=== PATIENT | female | born 1955 | race African-American/Black ===

== ENCOUNTER 2022-05-04 13:14 | Inpatient (IN) ==
[2022-05-04 13:39] LABS: Basophils % 0.4 % (0.0-0.8); Eosinophils # 0.1 10*3/uL (0.0-0.87); Eosinophils % 1.5 % (0.00-10.9); Hematocrit 23.9 VOL% (35.7-47.0); Immature Granulocytes % 0.8 %; Immature Granulocytes Absolute 0.06 #; Lymphocytes # 1.9 10*3/uL (1.4-4.0); Lymphocytes % 24.1 % (21.3-54.2); Mean Corpuscular HGB Conc 29.3 GM/DL (32-36); Mean Corpuscular Volume 93.4 FL (87-102); Mean Platelet Volume 9.2 FL (9.6-12.0); Monocytes # 0.6 10*3/uL (0.11-0.8); Monocytes % 7.1 % (1.7-12.7); NRBC # 0.03 10*3/uL; Neutrophils % 66.1 % (38.7-73.9); Platelet Count 259 T/CUMM (130-400); Red Blood Count 2.56 MC/CUMM (3.8-5.5); Red Cell Distribution Width 16.6 % (9.3-17.3)
[2022-05-04 14:02] LABS: Albumin 3.3 G/DL (3.4-5.0); Bilirubin,Total 0.5 MG/DL (0.20-1.00); Osmolality,Calculated 281.7 MOS/KG (273-304); Total Protein 6.8 G/DL (6.4-8.2)
[2022-05-04] MEDS ORDERED: SODIUM CHLORIDE 0.9% 1,000 ML IV PRN (14:45)
[2022-05-04] MEDS ORDERED: PANTOPRAZOLE INJ 80 MG in SODIUM CHLORIDE 0.9% 100 ML IV ONE (14:45)
[2022-05-04] MEDS ORDERED: PANTOPRAZOLE 40 MG VIAL IV ONE (15:21)
[2022-05-04 15:45] LABS: INR 3.9
[2022-05-04 15:50] LABS: PT Patient Result 38.8 SECS (10.1-12.1)
[2022-05-04] MEDS ORDERED: PANTOPRAZOLE INJ 200 MG in SODIUM CHLORIDE 0.9% 250 ML IV SCH (16:00)
[2022-05-04] MEDS ORDERED: FUROSEMIDE 40 MG TABLET PO PRN (18:00)
[2022-05-04] MEDS ORDERED: INFLUENZA VIRUS VACCINE 0.5 ML SYRINGE IM ONE (20:05)
[2022-05-04] MEDS: AMITRIPTYLINE 50 MG TABLET PO SCH (20:59)
[2022-05-04] MEDS: BIMATOPROST 0.01% OPH SOLN 2.5 ML BOTTLE BOTH EYES SCH (20:59)
[2022-05-04] MEDS: tiZANidine 4 MG TABLET PO SCH (21:01)
[2022-05-04] MEDS: METOPROLOL TARTRATE 50 MG TABLET PO SCH (21:01)
[2022-05-04] MEDS: PANTOPRAZOLE INJ 200 MG in SODIUM CHLORIDE 0.9% 250 ML IV SCH (21:03)
[2022-05-04 22:52] LABS: Hematocrit 29.1 VOL% (35.7-47.0); Hemoglobin 9.1 GM/DL (12.0-16.0)
[2022-05-05 03:29] LABS: Bacteria,Urine Occasional /HPF (Few); Bilirubin,Urine Negative (Negative); Blood, Urine Trace mg/dL (Negative); Glucose,Urine (UA) Negative (Negative); Ketones,Urine Negative (Negative); Nitrite,Urine Negative (Negative); Protein,Urine Negative (Negative); RBC,Urine 2 /HPF (0-4); Squamous Epithelial Cell,Urine Many /HPF (0-10); Urine Appearance Slightly Cloudy (Clear); Urine Color Yellow (Yellow); Urine Urobilinogen 0.2 eU/dL (<2.0); Urine pH 5.5 (4.5-8.0)
[2022-05-05 05:40] LABS: Hematocrit 30.5 VOL% (35.7-47.0); Hemoglobin 9.6 GM/DL (12.0-16.0)
[2022-05-05 05:50] LABS: INR 3.2; PT Patient Result 32.8 SECS (10.1-12.1)
[2022-05-05 06:09] LABS: Albumin 3.4 G/DL (3.4-5.0); Bilirubin,Total 0.7 MG/DL (0.20-1.00); Calcium 8.7 MG/DL (8.5-10.1); Osmolality,Calculated 282.1 MOS/KG (273-304); Potassium 3.8 MMOL/L (3.5-5.1); Total Protein 6.6 G/DL (6.4-8.2)
[2022-05-05] MEDS: LOSARTAN 50 MG TABLET PO SCH (09:19)
[2022-05-05] MEDS: ROSUVASTATIN 10 MG TABLET PO SCH (09:19)
[2022-05-05] MEDS: METOPROLOL TARTRATE 50 MG TABLET PO SCH ×2 (09:19→21:25)
[2022-05-05] MEDS: cycloSPORINE OPH EMUL 1 VIAL BOTH EYES SCH (09:22)
[2022-05-05 10:00] LABS: Hematocrit 29.4 VOL% (35.7-47.0); Hemoglobin 9.2 GM/DL (12.0-16.0)
[2022-05-05 11:01] LABS: % Iron Saturation 13.9 % (18-50); Ferritin 43.2 ng/mL (8-252)
[2022-05-05 13:55] LABS: Hematocrit 29.9 VOL% (35.7-47.0); Hemoglobin 9.3 GM/DL (12.0-16.0)
[2022-05-05] MEDS: PANTOPRAZOLE INJ 200 MG in SODIUM CHLORIDE 0.9% 250 ML IV SCH (17:11)
[2022-05-05] MEDS: AMITRIPTYLINE 50 MG TABLET PO SCH (21:24)
[2022-05-05] MEDS: tiZANidine 4 MG TABLET PO SCH (21:25)
[2022-05-05] MEDS: BIMATOPROST 0.01% OPH SOLN 2.5 ML BOTTLE BOTH EYES SCH (21:25)
[2022-05-05 22:17] LABS: Hematocrit 30.3 VOL% (35.7-47.0); Hemoglobin 9.2 GM/DL (12.0-16.0)
[2022-05-06 06:24] LABS: Basophils % 0.3 % (0.0-0.8); Eosinophils # 0.2 10*3/uL (0.0-0.87); Eosinophils % 2.8 % (0.00-10.9); Hematocrit 29.6 VOL% (35.7-47.0); Hemoglobin 9.2 GM/DL (12.0-16.0); Immature Granulocytes % 0.4 %; Immature Granulocytes Absolute 0.03 #; Lymphocytes # 2.2 10*3/uL (1.4-4.0); Lymphocytes % 33.2 % (21.3-54.2); Mean Corpuscular HGB Conc 31.1 GM/DL (32-36); Mean Corpuscular Volume 88.4 FL (87-102); Mean Platelet Volume 10.4 FL (9.6-12.0); Monocytes # 0.6 10*3/uL (0.11-0.8); Monocytes % 8.6 % (1.7-12.7); Neutrophils % 54.7 % (38.7-73.9); Platelet Count 227 T/CUMM (130-400); Red Blood Count 3.35 MC/CUMM (3.8-5.5); Red Cell Distribution Width 17.1 % (9.3-17.3); White Blood Count 6.7 T/CUMM (4-12)
[2022-05-06 06:37] LABS: INR 3.1; PT Patient Result 31.6 SECS (10.1-12.1)
[2022-05-06 06:47] LABS: Albumin 3.3 G/DL (3.4-5.0); Bilirubin,Total 0.8 MG/DL (0.20-1.00); Calcium 9.1 MG/DL (8.5-10.1); Osmolality,Calculated 278.4 MOS/KG (273-304); Potassium 3.4 MMOL/L (3.5-5.1); Total Protein 6.4 G/DL (6.4-8.2)
[2022-05-06] MEDS ORDERED: LACTATED RINGERS 1,000 ML IV SCH (08:00)
[2022-05-06] MEDS ORDERED: ETOMIDATE 20 MG/10 ML VIAL IV ONE (09:39)
[2022-05-06] MEDS ORDERED: propofoL 200 MG/20 ML VIAL IV ONE (09:39)
[2022-05-06] MEDS ORDERED: LIDOCAINE 2% 5 ML VIAL ONE (09:39)
[2022-05-06] MEDS ORDERED: POTASSIUM CHLORIDE 20 MEQ TABLET PO ONE (11:02)
[2022-05-06] MEDS: LOSARTAN 50 MG TABLET PO SCH (11:04)
[2022-05-06] MEDS: ROSUVASTATIN 10 MG TABLET PO SCH (11:04)
[2022-05-06] MEDS: cycloSPORINE OPH EMUL 1 VIAL BOTH EYES SCH (11:05)
[2022-05-06] MEDS: METOPROLOL TARTRATE 50 MG TABLET PO SCH ×2 (11:05→20:26)
[2022-05-06] MEDS: AMITRIPTYLINE 50 MG TABLET PO SCH (20:26)
[2022-05-06] MEDS: PANTOPRAZOLE 40 MG TABLET PO SCH (20:27)
[2022-05-06] MEDS: BIMATOPROST 0.01% OPH SOLN 2.5 ML BOTTLE BOTH EYES SCH (20:27)
[2022-05-06] MEDS: tiZANidine 4 MG TABLET PO SCH (20:27)
[2022-05-06] MEDS: oxyCODONE/ACETAMINOPHEN 5-325 MG TABLET PO PRN (20:28)
[2022-05-07 05:46] LABS: Basophils % 0.2 % (0.0-0.8); Eosinophils # 0.2 10*3/uL (0.0-0.87); Eosinophils % 3.7 % (0.00-10.9); Hematocrit 28.9 VOL% (35.7-47.0); Hemoglobin 9.1 GM/DL (12.0-16.0); Immature Granulocytes % 0.2 %; Immature Granulocytes Absolute 0.01 #; Lymphocytes # 2.3 10*3/uL (1.4-4.0); Lymphocytes % 40.8 % (21.3-54.2); Mean Corpuscular HGB Conc 31.5 GM/DL (32-36); Mean Platelet Volume 10.4 FL (9.6-12.0); Monocytes # 0.5 10*3/uL (0.11-0.8); Monocytes % 9.2 % (1.7-12.7); Neutrophils % 45.9 % (38.7-73.9); Platelet Count 228 T/CUMM (130-400); Red Blood Count 3.21 MC/CUMM (3.8-5.5); Red Cell Distribution Width 16.7 % (9.3-17.3); White Blood Count 5.7 T/CUMM (4-12)
[2022-05-07 05:53] LABS: INR 2.6; PT Patient Result 26.6 SECS (10.1-12.1)
[2022-05-07 06:00] LABS: Calcium 9.1 MG/DL (8.5-10.1); Osmolality,Calculated 279.3 MOS/KG (273-304); Potassium 4.1 MMOL/L (3.5-5.1)
[2022-05-07] MEDS: oxyCODONE/ACETAMINOPHEN 5-325 MG TABLET PO PRN ×2 (08:37→19:42)
[2022-05-07] MEDS: LOSARTAN 50 MG TABLET PO SCH (09:55)
[2022-05-07] MEDS: METOPROLOL TARTRATE 50 MG TABLET PO SCH ×2 (09:56→21:00)
[2022-05-07] MEDS: PANTOPRAZOLE 40 MG TABLET PO SCH ×2 (09:57→21:00)
[2022-05-07] MEDS: ROSUVASTATIN 10 MG TABLET PO SCH (09:58)
[2022-05-07] MEDS: cycloSPORINE OPH EMUL 1 VIAL BOTH EYES SCH (10:04)
[2022-05-07] MEDS: tiZANidine 4 MG TABLET PO SCH (21:00)
[2022-05-07] MEDS: AMITRIPTYLINE 50 MG TABLET PO SCH (21:00)
[2022-05-07] MEDS: BIMATOPROST 0.01% OPH SOLN 2.5 ML BOTTLE BOTH EYES SCH (21:01)
[2022-05-07] MEDS: ZALEPLON 5 MG CAPSULE PO PRN (23:03)
[2022-05-08 05:08] LABS: Basophils % 0.2 % (0.0-0.8); Eosinophils # 0.2 10*3/uL (0.0-0.87); Eosinophils % 2.8 % (0.00-10.9); Hematocrit 28.8 VOL% (35.7-47.0); Hemoglobin 8.9 GM/DL (12.0-16.0); Immature Granulocytes % 0.2 %; Immature Granulocytes Absolute 0.01 #; Lymphocytes # 2.2 10*3/uL (1.4-4.0); Mean Corpuscular HGB Conc 30.9 GM/DL (32-36); Mean Corpuscular Volume 89.4 FL (87-102); Mean Platelet Volume 10.2 FL (9.6-12.0); Monocytes # 0.6 10*3/uL (0.11-0.8); Monocytes % 9.1 % (1.7-12.7); Neutrophils % 51.7 % (38.7-73.9); Platelet Count 233 T/CUMM (130-400); Red Blood Count 3.22 MC/CUMM (3.8-5.5); Red Cell Distribution Width 16.3 % (9.3-17.3)
[2022-05-08 05:34] LABS: Calcium 8.7 MG/DL (8.5-10.1); Osmolality,Calculated 280.1 MOS/KG (273-304); Potassium 3.8 MMOL/L (3.5-5.1)
[2022-05-08 05:35] LABS: INR 1.7; PT Patient Result 17.9 SECS (10.1-12.1)
[2022-05-08] MEDS: LACTATED RINGERS 1,000 ML IV SCH ×2 (07:45→10:24)
[2022-05-08] MEDS: LOSARTAN 50 MG TABLET PO SCH (09:04)
[2022-05-08] MEDS: cycloSPORINE OPH EMUL 1 VIAL BOTH EYES SCH (09:04)
[2022-05-08] MEDS: PANTOPRAZOLE 40 MG TABLET PO SCH ×2 (09:04→21:11)
[2022-05-08] MEDS: METOPROLOL TARTRATE 50 MG TABLET PO SCH ×2 (09:04→21:11)
[2022-05-08] MEDS: ROSUVASTATIN 10 MG TABLET PO SCH (09:04)
[2022-05-08] MEDS: HEPARIN DRIP 25,000 UNITS/500 ML PREMIX IV SCH (10:59)
[2022-05-08 17:12] LABS: INR 1.4; PT Patient Result 15.1 SECS (10.1-12.1); Partial Thromboplastin Time 83.1 SECS (23.7-32.9)
[2022-05-08] MEDS: PROMETHAZINE 25 MG/1 ML VIAL IM PRN (17:25)
[2022-05-08] MEDS: tiZANidine 4 MG TABLET PO SCH (21:10)
[2022-05-08] MEDS: AMITRIPTYLINE 50 MG TABLET PO SCH (21:12)
[2022-05-08] MEDS: BIMATOPROST 0.01% OPH SOLN 2.5 ML BOTTLE BOTH EYES SCH (21:12)
[2022-05-08] MEDS: oxyCODONE/ACETAMINOPHEN 5-325 MG TABLET PO PRN (23:06)
[2022-05-08 23:58] LABS: INR 1.3
[2022-05-09 00:01] LABS: Partial Thromboplastin Time 144.1 SECS (23.7-32.9)
[2022-05-09 07:30] LABS: Basophils % 0.3 % (0.0-0.8); Eosinophils # 0.2 10*3/uL (0.0-0.87); Eosinophils % 3.6 % (0.00-10.9); Hematocrit 28.4 VOL% (35.7-47.0); Hemoglobin 8.8 GM/DL (12.0-16.0); Immature Granulocytes % 0.3 %; Immature Granulocytes Absolute 0.02 #; Lymphocytes # 2.6 10*3/uL (1.4-4.0); Lymphocytes % 40.3 % (21.3-54.2); Mean Corpuscular Volume 89.6 FL (87-102); Mean Platelet Volume 10.5 FL (9.6-12.0); Monocytes # 0.5 10*3/uL (0.11-0.8); Monocytes % 7.6 % (1.7-12.7); Neutrophils % 47.9 % (38.7-73.9); Platelet Count 238 T/CUMM (130-400); Red Blood Count 3.17 MC/CUMM (3.8-5.5); Red Cell Distribution Width 16.2 % (9.3-17.3); White Blood Count 6.4 T/CUMM (4-12)
[2022-05-09 07:45] LABS: Calcium 8.8 MG/DL (8.5-10.1); Osmolality,Calculated 281.1 MOS/KG (273-304); Potassium 3.6 MMOL/L (3.5-5.1)
[2022-05-09] MEDS: METOPROLOL TARTRATE 50 MG TABLET PO SCH ×2 (09:34→22:14)
[2022-05-09] MEDS: LOSARTAN 50 MG TABLET PO SCH (09:34)
[2022-05-09] MEDS: PANTOPRAZOLE 40 MG TABLET PO SCH ×2 (09:34→22:14)
[2022-05-09] MEDS: ROSUVASTATIN 10 MG TABLET PO SCH (09:34)
[2022-05-09] MEDS: cycloSPORINE OPH EMUL 1 VIAL BOTH EYES SCH (09:37)
[2022-05-09] MEDS: oxyCODONE/ACETAMINOPHEN 5-325 MG TABLET PO PRN ×2 (09:41→22:14)
[2022-05-09] MEDS: HEPARIN DRIP 25,000 UNITS/500 ML PREMIX IV SCH (09:43)
[2022-05-09] MEDS: LACTATED RINGERS 1,000 ML IV SCH (10:23)
[2022-05-09] MEDS ORDERED: BISACODYL 5 MG TABLET PO ONE (12:00)
[2022-05-09] MEDS ORDERED: POLYETHYLENE GLYCOL POWDER 255 GM BOTTLE PO ONE (18:00)
[2022-05-09] MEDS: PROMETHAZINE 25 MG/1 ML VIAL IM PRN (20:49)
[2022-05-09] MEDS ORDERED: MAGNESIUM HYDROXIDE SUSP 30 ML UDCUP PO ONE (21:00)
[2022-05-09] MEDS: AMITRIPTYLINE 50 MG TABLET PO SCH (22:14)
[2022-05-09] MEDS: tiZANidine 4 MG TABLET PO SCH (22:14)
[2022-05-09] MEDS: BIMATOPROST 0.01% OPH SOLN 2.5 ML BOTTLE BOTH EYES SCH (22:15)
[2022-05-10 01:36] LABS: Basophils % 0.3 % (0.0-0.8); Eosinophils # 0.1 10*3/uL (0.0-0.87); Hematocrit 28.1 VOL% (35.7-47.0); Hemoglobin 8.7 GM/DL (12.0-16.0); Immature Granulocytes % 0.4 %; Immature Granulocytes Absolute 0.03 #; Lymphocytes # 1.7 10*3/uL (1.4-4.0); Lymphocytes % 24.9 % (21.3-54.2); Mean Corpuscular Volume 89.2 FL (87-102); Mean Platelet Volume 10.6 FL (9.6-12.0); Monocytes # 0.4 10*3/uL (0.11-0.8); Monocytes % 6.4 % (1.7-12.7); Platelet Count 239 T/CUMM (130-400); Red Blood Count 3.15 MC/CUMM (3.8-5.5); Red Cell Distribution Width 16.2 % (9.3-17.3); White Blood Count 6.9 T/CUMM (4-12)
[2022-05-10 01:45] LABS: INR 1.2
[2022-05-10 02:02] LABS: Calcium 8.9 MG/DL (8.5-10.1); Osmolality,Calculated 278.4 MOS/KG (273-304); Potassium 3.9 MMOL/L (3.5-5.1)
[2022-05-10] MEDS: LACTATED RINGERS 1,000 ML IV SCH (08:33)
[2022-05-10] MEDS ORDERED: ETOMIDATE 20 MG/10 ML VIAL IV ONE (09:52)
[2022-05-10] MEDS ORDERED: propofoL 200 MG/20 ML VIAL IV ONE (09:52)
[2022-05-10] MEDS ORDERED: LIDOCAINE 2% 5 ML VIAL ONE (09:52)
[2022-05-10] MEDS ORDERED: LABETALOL 20 MG/4 ML SYRINGE IV ONE (09:52)
[2022-05-10] MEDS: METOPROLOL TARTRATE 50 MG TABLET PO SCH ×2 (11:44→20:50)
[2022-05-10] MEDS: LOSARTAN 50 MG TABLET PO SCH (12:46)
[2022-05-10] MEDS: ROSUVASTATIN 10 MG TABLET PO SCH (12:49)
[2022-05-10] MEDS: PANTOPRAZOLE 40 MG TABLET PO SCH ×2 (12:49→20:50)
[2022-05-10] MEDS: cycloSPORINE OPH EMUL 1 VIAL BOTH EYES SCH (12:50)
[2022-05-10] MEDS ORDERED: HEPARIN 5,000 UNIT/1 ML VIAL IV ONE (14:00)
[2022-05-10] MEDS: oxyCODONE/ACETAMINOPHEN 5-325 MG TABLET PO PRN ×2 (15:18→18:21)
[2022-05-10] MEDS: HEPARIN DRIP 25,000 UNITS/500 ML PREMIX IV SCH (18:36)
[2022-05-10] MEDS: AMITRIPTYLINE 50 MG TABLET PO SCH (20:50)
[2022-05-10] MEDS: tiZANidine 4 MG TABLET PO SCH (20:50)
[2022-05-10] MEDS: BIMATOPROST 0.01% OPH SOLN 2.5 ML BOTTLE BOTH EYES SCH (20:51)
[2022-05-11 07:47] LABS: Basophils % 0.4 % (0.0-0.8); Eosinophils # 0.2 10*3/uL (0.0-0.87); Eosinophils % 3.4 % (0.00-10.9); Hematocrit 30.4 VOL% (35.7-47.0); Hemoglobin 9.3 GM/DL (12.0-16.0); Immature Granulocytes % 0.4 %; Immature Granulocytes Absolute 0.02 #; Lymphocytes % 36.6 % (21.3-54.2); Mean Corpuscular HGB Conc 30.6 GM/DL (32-36); Mean Corpuscular Volume 90.5 FL (87-102); Mean Platelet Volume 10.1 FL (9.6-12.0); Monocytes # 0.5 10*3/uL (0.11-0.8); Monocytes % 9.3 % (1.7-12.7); Neutrophils % 49.9 % (38.7-73.9); Platelet Count 233 T/CUMM (130-400); Red Blood Count 3.36 MC/CUMM (3.8-5.5); Red Cell Distribution Width 16.2 % (9.3-17.3); White Blood Count 5.4 T/CUMM (4-12)
[2022-05-11 08:00] LABS: INR 1.1; PT Patient Result 11.6 SECS (10.1-12.1)
[2022-05-11 08:08] LABS: Calcium 8.8 MG/DL (8.5-10.1); Osmolality,Calculated 276.4 MOS/KG (273-304); Potassium 3.4 MMOL/L (3.5-5.1)
[2022-05-11] MEDS: ROSUVASTATIN 10 MG TABLET PO SCH (09:05)
[2022-05-11] MEDS: PANTOPRAZOLE 40 MG TABLET PO SCH ×2 (09:06→20:25)
[2022-05-11] MEDS: METOPROLOL TARTRATE 50 MG TABLET PO SCH ×2 (09:06→20:25)
[2022-05-11] MEDS: cycloSPORINE OPH EMUL 1 VIAL BOTH EYES SCH (09:13)
[2022-05-11] MEDS ORDERED: POTASSIUM CHLORIDE 20 MEQ TABLET PO ONE (10:00)
[2022-05-11] MEDS: LOSARTAN 50 MG TABLET PO SCH (10:25)
[2022-05-11] MEDS: oxyCODONE/ACETAMINOPHEN 5-325 MG TABLET PO PRN ×2 (12:49→20:53)
[2022-05-11] MEDS ORDERED: WARFARIN 10 MG TABLET PO ONE (13:00)
[2022-05-11] MEDS: AMITRIPTYLINE 50 MG TABLET PO SCH (20:25)
[2022-05-11] MEDS: HEPARIN DRIP 25,000 UNITS/500 ML PREMIX IV SCH (20:25)
[2022-05-11] MEDS: tiZANidine 4 MG TABLET PO SCH (20:25)
[2022-05-11] MEDS: BIMATOPROST 0.01% OPH SOLN 2.5 ML BOTTLE BOTH EYES SCH (20:25)
[2022-05-12] MEDS: ZALEPLON 5 MG CAPSULE PO PRN ×2 (00:51→21:08)
[2022-05-12 05:21] LABS: Basophils % 0.3 % (0.0-0.8); Eosinophils # 0.1 10*3/uL (0.0-0.87); Eosinophils % 2.4 % (0.00-10.9); Hematocrit 27.7 VOL% (35.7-47.0); Hemoglobin 8.4 GM/DL (12.0-16.0); Immature Granulocytes % 0.2 %; Immature Granulocytes Absolute 0.01 #; Lymphocytes # 2.7 10*3/uL (1.4-4.0); Lymphocytes % 46.2 % (21.3-54.2); Mean Corpuscular HGB Conc 30.3 GM/DL (32-36); Mean Corpuscular Volume 90.8 FL (87-102); Mean Platelet Volume 10.1 FL (9.6-12.0); Monocytes # 0.6 10*3/uL (0.11-0.8); Monocytes % 10.2 % (1.7-12.7); Neutrophils % 40.7 % (38.7-73.9); Platelet Count 220 T/CUMM (130-400); Red Blood Count 3.05 MC/CUMM (3.8-5.5); Red Cell Distribution Width 15.9 % (9.3-17.3); White Blood Count 5.8 T/CUMM (4-12)
[2022-05-12 05:30] LABS: INR 1.1; PT Patient Result 12.3 SECS (10.1-12.1)
[2022-05-12 05:47] LABS: Calcium 9.1 MG/DL (8.5-10.1); Osmolality,Calculated 281.3 MOS/KG (273-304); Potassium 3.6 MMOL/L (3.5-5.1)
[2022-05-12] MEDS: METOPROLOL TARTRATE 50 MG TABLET PO SCH ×2 (08:35→21:23)
[2022-05-12] MEDS: ROSUVASTATIN 10 MG TABLET PO SCH (08:35)
[2022-05-12] MEDS: PANTOPRAZOLE 40 MG TABLET PO SCH ×2 (08:35→21:08)
[2022-05-12] MEDS: WARFARIN 5 MG TABLET PO SCH (08:35)
[2022-05-12] MEDS: LOSARTAN 50 MG TABLET PO SCH (08:35)
[2022-05-12] MEDS: cycloSPORINE OPH EMUL 1 VIAL BOTH EYES SCH (08:38)
[2022-05-12] MEDS ORDERED: MECLIZINE 25 MG TABLET PO PRN (11:19)
[2022-05-12] MEDS ORDERED: WARFARIN 5 MG TABLET PO ONE (13:00)
[2022-05-12] MEDS: HEPARIN DRIP 25,000 UNITS/500 ML PREMIX IV SCH ×2 (13:30→21:24)
[2022-05-12] MEDS: AMITRIPTYLINE 50 MG TABLET PO SCH (21:08)
[2022-05-12] MEDS: tiZANidine 4 MG TABLET PO SCH (21:08)
[2022-05-12] MEDS: BIMATOPROST 0.01% OPH SOLN 2.5 ML BOTTLE BOTH EYES SCH (21:08)
[2022-05-13 05:12] LABS: Basophils % 0.2 % (0.0-0.8); Eosinophils # 0.2 10*3/uL (0.0-0.87); Eosinophils % 3.2 % (0.00-10.9); Hematocrit 28.8 VOL% (35.7-47.0); Hemoglobin 8.9 GM/DL (12.0-16.0); Immature Granulocytes % 0.2 %; Immature Granulocytes Absolute 0.01 #; Lymphocytes # 2.1 10*3/uL (1.4-4.0); Lymphocytes % 39.8 % (21.3-54.2); Mean Corpuscular HGB Conc 30.9 GM/DL (32-36); Mean Corpuscular Volume 88.3 FL (87-102); Monocytes # 0.5 10*3/uL (0.11-0.8); Monocytes % 9.1 % (1.7-12.7); Neutrophils % 47.5 % (38.7-73.9); Platelet Count 244 T/CUMM (130-400); Red Blood Count 3.26 MC/CUMM (3.8-5.5); Red Cell Distribution Width 15.9 % (9.3-17.3); White Blood Count 5.4 T/CUMM (4-12)
[2022-05-13 05:23] LABS: INR 1.7; PT Patient Result 17.7 SECS (10.1-12.1)
[2022-05-13 05:32] LABS: Calcium 9.1 MG/DL (8.5-10.1); Osmolality,Calculated 280.1 MOS/KG (273-304); Potassium 3.9 MMOL/L (3.5-5.1)
[2022-05-13] MEDS ORDERED: WARFARIN 2.5 MG TABLET PO SCH (09:00)
[2022-05-13] MEDS: ROSUVASTATIN 10 MG TABLET PO SCH (09:48)
[2022-05-13] MEDS: LOSARTAN 50 MG TABLET PO SCH (09:48)
[2022-05-13] MEDS: PANTOPRAZOLE 40 MG TABLET PO SCH ×2 (09:50→20:42)
[2022-05-13] MEDS: METOPROLOL TARTRATE 50 MG TABLET PO SCH ×2 (09:50→20:42)
[2022-05-13] MEDS: cycloSPORINE OPH EMUL 1 VIAL BOTH EYES SCH (09:54)
[2022-05-13] MEDS: CHOLECALCIFEROL 5,000 UNIT TABLET PO SCH (09:56)
[2022-05-13] MEDS: HEPARIN DRIP 25,000 UNITS/500 ML PREMIX IV SCH ×2 (10:30→23:32)
[2022-05-13] MEDS ORDERED: hydrALAZINE 20 MG/1 ML VIAL IV PRN (16:48)
[2022-05-13] MEDS: AMITRIPTYLINE 50 MG TABLET PO SCH (20:41)
[2022-05-13] MEDS: tiZANidine 4 MG TABLET PO SCH (20:42)
[2022-05-13] MEDS: BIMATOPROST 0.01% OPH SOLN 2.5 ML BOTTLE BOTH EYES SCH (20:42)
[2022-05-14 05:13] LABS: Basophils % 0.5 % (0.0-0.8); Eosinophils # 0.2 10*3/uL (0.0-0.87); Eosinophils % 2.5 % (0.00-10.9); Hematocrit 29.6 VOL% (35.7-47.0); Hemoglobin 9.3 GM/DL (12.0-16.0); Immature Granulocytes % 0.2 %; Immature Granulocytes Absolute 0.01 #; Lymphocytes # 2.2 10*3/uL (1.4-4.0); Lymphocytes % 35.8 % (21.3-54.2); Mean Corpuscular HGB Conc 31.4 GM/DL (32-36); Mean Corpuscular Volume 88.4 FL (87-102); Mean Platelet Volume 10.3 FL (9.6-12.0); Monocytes # 0.6 10*3/uL (0.11-0.8); Monocytes % 9.8 % (1.7-12.7); Neutrophils % 51.2 % (38.7-73.9); Platelet Count 244 T/CUMM (130-400); Red Blood Count 3.35 MC/CUMM (3.8-5.5); Red Cell Distribution Width 15.7 % (9.3-17.3); White Blood Count 6.1 T/CUMM (4-12)
[2022-05-14 05:35] LABS: Calcium 9.1 MG/DL (8.5-10.1); Osmolality,Calculated 276.4 MOS/KG (273-304); Potassium 3.9 MMOL/L (3.5-5.1)
[2022-05-14 05:36] LABS: INR 1.9; PT Patient Result 19.6 SECS (10.1-12.1)
[2022-05-14] MEDS ORDERED: ACETAMINOPHEN 325 MG TABLET PO PRN (05:58)
[2022-05-14 08:49] VITALS: BP 177/76
[2022-05-14] MEDS: ROSUVASTATIN 10 MG TABLET PO SCH (09:50)
[2022-05-14] MEDS: WARFARIN 5 MG TABLET PO SCH (09:50)
[2022-05-14] MEDS: LOSARTAN 50 MG TABLET PO SCH (09:50)
[2022-05-14] MEDS: METOPROLOL TARTRATE 50 MG TABLET PO SCH (09:50)
[2022-05-14] MEDS: cycloSPORINE OPH EMUL 1 VIAL BOTH EYES SCH (09:51)
[2022-05-14] MEDS: PANTOPRAZOLE 40 MG TABLET PO SCH (09:51)
[2022-05-14] MEDS: CHOLECALCIFEROL 5,000 UNIT TABLET PO SCH (09:51)
== END 2022-05-14 11:39 | disposition home or self-care (01) | DRG 813 ==
LOC: N.ED 13:14 → N.EDINP 15:55 → SUATTDRO 15:55 → N.5E 17:28
PROVIDERS: ADMIT Internal Medicine; ATTEND Internal Medicine

== ENCOUNTER 2022-09-26 12:04 | Inpatient (IN) ==
[2022-09-26] MEDS ORDERED: ASPIRIN 325 MG TABLET PO STA (12:47)
[2022-09-26 12:55] LABS: Basophils % 0.3 % (0.0-0.8); Eosinophils # 0.1 10*3/uL (0.0-0.87); Eosinophils % 1.3 % (0.00-10.9); Hematocrit 27.1 VOL% (35.7-47.0); Hemoglobin 8.2 GM/DL (12.0-16.0); Immature Granulocytes % 0.7 %; Immature Granulocytes Absolute 0.05 #; Lymphocytes # 2.5 10*3/uL (1.4-4.0); Lymphocytes % 33.6 % (21.3-54.2); Mean Corpuscular HGB Conc 30.3 GM/DL (32-36); Mean Platelet Volume 10.2 FL (9.6-12.0); Monocytes # 0.5 10*3/uL (0.11-0.8); Monocytes % 6.4 % (1.7-12.7); NRBC # 0.03 10*3/uL; Neutrophils % 57.7 % (38.7-73.9); Platelet Count 285 T/CUMM (130-400); Red Blood Count 3.01 MC/CUMM (3.8-5.5); Red Cell Distribution Width 18.1 % (9.3-17.3); White Blood Count 7.49 T/CUMM (4-12)
[2022-09-26 13:02] LABS: INR 1.4; PT Patient Result 15.5 SECS (10.1-12.1)
[2022-09-26 13:04] LABS: Calcium 8.9 MG/DL (8.5-10.1); Osmolality,Calculated 281.5 MOS/KG (273-304); Potassium 4.2 MMOL/L (3.5-5.1)
[2022-09-26 13:33] LABS: Bilirubin,Urine Negative (Negative); Blood, Urine Negative (Negative); Glucose,Urine (UA) Negative (Negative); Ketones,Urine Trace mg/dL (Negative); Nitrite,Urine Negative (Negative); Protein,Urine Negative (Negative); Urine Appearance Clear (Clear); Urine Color Yellow (Yellow); Urine Specific Gravity 1.025 (1.001-1.035); Urine pH 5.5 (4.5-8.0)
[2022-09-26 13:37] LABS: Hyaline Casts,Urine 5 /LPF (0-3); Mucus,Urine Occasional /LPF (Occasional); Squamous Epithelial Cell,Urine Occasional /HPF (0-10)
[2022-09-26] MEDS ORDERED: DOCUSATE SODIUM 100 MG CAPSULE PO PRN (17:53)
[2022-09-26] MEDS ORDERED: NITROGLYCERIN SL 0.4 MG TABLET SL PRN (17:53)
[2022-09-26] MEDS ORDERED: hydrALAZINE 20 MG/1 ML VIAL IV PRN (17:53)
[2022-09-26] MEDS ORDERED: PROMETHAZINE 25 MG TABLET PO PRN (17:53)
[2022-09-26] MEDS ORDERED: POTASSIUM CHLORIDE 20 MEQ TABLET PO PRN (17:58)
[2022-09-26] MEDS ORDERED: FUROSEMIDE 40 MG TABLET PO PRN (17:58)
[2022-09-26] MEDS ORDERED: WARFARIN 5 MG TABLET PO SCH (18:00)
[2022-09-26] MEDS ORDERED: ENOXAPARIN 40 MG/0.4 ML SYRINGE SUBCUT SCH (18:00)
[2022-09-26] MEDS ORDERED: SODIUM CHLORIDE 0.9% 1,000 ML IV PRN (18:02)
[2022-09-26 18:10] LABS: % Iron Saturation 16.9 % (18-50)
[2022-09-26 18:20] LABS: Risk Ratio 2.62; Thyroid Stimulating Hormone 1.64 uIU/ml (0.358-3.74); VLDL Cholesterol 29.4 MG/DL
[2022-09-26] MEDS ORDERED: HEPARIN DRIP 25,000 UNITS/500 ML PREMIX IV SCH (18:30)
[2022-09-26 19:06] LABS: Folate 13.95 NG/ML (5.38-24.0); Vitamin B12 283 PG/ML (211-911)
[2022-09-26 19:49] LABS: Basophils % 0.3 % (0.0-0.8); Eosinophils # 0.1 10*3/uL (0.0-0.87); Eosinophils % 1.2 % (0.00-10.9); Hemoglobin 7.2 GM/DL (12.0-16.0); Immature Granulocytes % 0.6 %; Immature Granulocytes Absolute 0.04 #; Lymphocytes # 2.8 10*3/uL (1.4-4.0); Mean Corpuscular Volume 89.9 FL (87-102); Mean Platelet Volume 9.9 FL (9.6-12.0); Monocytes # 0.6 10*3/uL (0.11-0.8); Monocytes % 8.6 % (1.7-12.7); NRBC # 0.03 10*3/uL; Neutrophils % 49.3 % (38.7-73.9); Platelet Count 234 T/CUMM (130-400); Red Blood Count 2.67 MC/CUMM (3.8-5.5); Red Cell Distribution Width 18.4 % (9.3-17.3); White Blood Count 6.88 T/CUMM (4-12)
[2022-09-26 20:07] LABS: Calcium 8.3 MG/DL (8.5-10.1); Osmolality,Calculated 282.3 MOS/KG (273-304); Potassium 3.9 MMOL/L (3.5-5.1)
[2022-09-26 21:11] LABS: Sedimentation Rate-Westergren 45 MM/HR (0-30)
[2022-09-26] MEDS: AMITRIPTYLINE 50 MG TABLET PO SCH (21:29)
[2022-09-26] MEDS: METOPROLOL TARTRATE 50 MG TABLET PO SCH (21:30)
[2022-09-26 21:39] LABS: Eosinophils 1 % (0-10); Lymphocytes 37 % (20-55); Total Cells Counted 100
[2022-09-26 21:40] LABS: Hypochromia 1+; Ovalocytes Slight; Platelet Estimate Normal; Polychromasia Slight
[2022-09-27 05:13] LABS: Hematocrit 26.1 VOL% (35.7-47.0); Hemoglobin 8.1 GM/DL (12.0-16.0)
[2022-09-27 05:14] LABS: Basophils % 0.3 % (0.0-0.8); Eosinophils # 0.1 10*3/uL (0.0-0.87); Eosinophils % 1.6 % (0.00-10.9); Hematocrit 26.5 VOL% (35.7-47.0); Hemoglobin 8.1 GM/DL (12.0-16.0); Lymphocytes # 2.3 10*3/uL (1.4-4.0); Mean Corpuscular HGB Conc 30.6 GM/DL (32-36); Mean Corpuscular Volume 87.5 FL (87-102); Mean Platelet Volume 9.8 FL (9.6-12.0); Monocytes # 0.6 10*3/uL (0.11-0.8); Neutrophils % 56.4 % (38.7-73.9); Platelet Count 210 T/CUMM (130-400); Red Blood Count 3.03 MC/CUMM (3.8-5.5); Red Cell Distribution Width 18.8 % (9.3-17.3); White Blood Count 6.91 T/CUMM (4-12)
[2022-09-27 05:24] LABS: INR 1.7; PT Patient Result 17.6 SECS (10.1-12.1); Partial Thromboplastin Time 34.4 SECS (23.7-32.9)
[2022-09-27 05:39] LABS: Calcium 8.6 MG/DL (8.5-10.1); Osmolality,Calculated 281.3 MOS/KG (273-304); Potassium 3.9 MMOL/L (3.5-5.1)
[2022-09-27] MEDS ORDERED: SODIUM CHLORIDE 0.9% 1,000 ML IV PRN (08:07)
[2022-09-27] MEDS: METOPROLOL TARTRATE 50 MG TABLET PO SCH ×2 (08:36→21:02)
[2022-09-27] MEDS: ROSUVASTATIN 10 MG TABLET PO SCH (08:36)
[2022-09-27] MEDS: PANTOPRAZOLE 40 MG VIAL IV SCH (08:36)
[2022-09-27] MEDS ORDERED: PANTOPRAZOLE 40 MG TABLET PO SCH (09:00)
[2022-09-27 10:04] LABS: Hemoglobin A1 (Alkaline) 97.8 % (96.5-98.5); Hemoglobin A2 (Alkaline) 2.2 % (1.5-3.5)
[2022-09-27 10:30] LABS: Hematocrit 26.7 VOL% (35.7-47.0); Hemoglobin 8.2 GM/DL (12.0-16.0)
[2022-09-27 10:37] LABS: Basophils % 0.3 % (0.0-0.8); Eosinophils # 0.1 10*3/uL (0.0-0.87); Eosinophils % 1.8 % (0.00-10.9); Hematocrit 26.9 VOL% (35.7-47.0); Hemoglobin 8.3 GM/DL (12.0-16.0); Immature Granulocytes % 0.4 %; Immature Granulocytes Absolute 0.03 #; Lymphocytes # 2.4 10*3/uL (1.4-4.0); Lymphocytes % 35.3 % (21.3-54.2); Mean Corpuscular HGB Conc 30.9 GM/DL (32-36); Mean Corpuscular Volume 87.9 FL (87-102); Mean Platelet Volume 9.9 FL (9.6-12.0); Monocytes # 0.6 10*3/uL (0.11-0.8); Monocytes % 8.4 % (1.7-12.7); NRBC # 0.04 10*3/uL; Neutrophils % 53.8 % (38.7-73.9); Platelet Count 220 T/CUMM (130-400); Red Blood Count 3.06 MC/CUMM (3.8-5.5); White Blood Count 6.75 T/CUMM (4-12)
[2022-09-27 18:35] LABS: Hematocrit 29.1 VOL% (35.7-47.0); Hemoglobin 9.1 GM/DL (12.0-16.0)
[2022-09-27] MEDS: AMITRIPTYLINE 50 MG TABLET PO SCH (21:02)
[2022-09-28 02:52] LABS: Basophils % 0.3 % (0.0-0.8); Eosinophils # 0.1 10*3/uL (0.0-0.87); Eosinophils % 1.5 % (0.00-10.9); Hematocrit 28.3 VOL% (35.7-47.0); Hemoglobin 8.9 GM/DL (12.0-16.0); Immature Granulocytes % 0.6 %; Immature Granulocytes Absolute 0.04 #; Lymphocytes # 2.3 10*3/uL (1.4-4.0); Lymphocytes % 34.9 % (21.3-54.2); Mean Corpuscular HGB Conc 31.4 GM/DL (32-36); Mean Corpuscular Volume 86.5 FL (87-102); Mean Platelet Volume 9.8 FL (9.6-12.0); Monocytes # 0.6 10*3/uL (0.11-0.8); Monocytes % 8.4 % (1.7-12.7); NRBC # 0.05 10*3/uL; Neutrophils % 54.3 % (38.7-73.9); Platelet Count 209 T/CUMM (130-400); Red Blood Count 3.27 MC/CUMM (3.8-5.5); Red Cell Distribution Width 19.3 % (9.3-17.3)
[2022-09-28 03:01] LABS: INR 1.8; PT Patient Result 18.8 SECS (10.1-12.1)
[2022-09-28 03:08] LABS: Calcium 8.1 MG/DL (8.5-10.1); Osmolality,Calculated 278.4 MOS/KG (273-304); Potassium 3.8 MMOL/L (3.5-5.1)
[2022-09-28] MEDS: ROSUVASTATIN 10 MG TABLET PO SCH (08:17)
[2022-09-28] MEDS: METOPROLOL TARTRATE 50 MG TABLET PO SCH ×2 (08:17→20:18)
[2022-09-28] MEDS: PANTOPRAZOLE 40 MG VIAL IV SCH (08:18)
[2022-09-28 09:20] LABS: Hematocrit 29.6 VOL% (35.7-47.0); Hemoglobin 9.1 GM/DL (12.0-16.0)
[2022-09-28] MEDS ORDERED: WARFARIN 2.5 MG TABLET PO SCH (18:00)
[2022-09-28] MEDS: AMITRIPTYLINE 50 MG TABLET PO SCH (20:18)
[2022-09-28] MEDS ORDERED: tiZANidine 4 MG TABLET PO SCH (21:00)
[2022-09-29 06:04] LABS: INR 1.8; PT Patient Result 19.2 SECS (10.1-12.1)
[2022-09-29 08:20] LABS: Basophils % 0.3 % (0.0-0.8); Eosinophils # 0.1 10*3/uL (0.0-0.87); Eosinophils % 1.9 % (0.00-10.9); Hematocrit 28.5 VOL% (35.7-47.0); Hemoglobin 8.7 GM/DL (12.0-16.0); Immature Granulocytes % 0.5 %; Immature Granulocytes Absolute 0.03 #; Lymphocytes % 34.4 % (21.3-54.2); Mean Corpuscular HGB Conc 30.5 GM/DL (32-36); Mean Corpuscular Volume 88.5 FL (87-102); Monocytes # 0.6 10*3/uL (0.11-0.8); NRBC # 0.03 10*3/uL; Neutrophils % 52.9 % (38.7-73.9); Platelet Count 233 T/CUMM (130-400); Red Blood Count 3.22 MC/CUMM (3.8-5.5); Red Cell Distribution Width 19.9 % (9.3-17.3); White Blood Count 5.79 T/CUMM (4-12)
[2022-09-29 08:54] LABS: Albumin 3.2 G/DL (3.4-5.0); Bilirubin,Total 0.9 MG/DL (0.20-1.00); Calcium 8.9 MG/DL (8.5-10.1); Osmolality,Calculated 277.4 MOS/KG (273-304); Potassium 3.8 MMOL/L (3.5-5.1); Total Protein 6.4 G/DL (6.4-8.2)
[2022-09-29] MEDS: METOPROLOL TARTRATE 50 MG TABLET PO SCH (09:18)
[2022-09-29] MEDS: PANTOPRAZOLE 40 MG VIAL IV SCH (09:18)
[2022-09-29] MEDS: ROSUVASTATIN 10 MG TABLET PO SCH (09:18)
[2022-09-29 10:51] VITALS: BP 127/44
== END 2022-09-29 17:30 | disposition home or self-care (01) | DRG 813 ==
LOC: N.ED 12:04 → N.2W 12:04 → SUATTDRO 09-27 08:11 → N.3E 09-27 16:41
PROVIDERS: ADMIT Internal Medicine; ATTEND Internal Medicine Nephrology